=== PATIENT | female | born 1980 | race Two or more races ===

== ENCOUNTER 2018-07-25 15:59 | Emergency (ER) | payer MEDICAID ==
--- NOTE | 2018-07-25 16:20 | ED Physician Chart ---
ED Chief Complaint/HPI - Patient Information Date Seen:: 07/25/18 Time Seen:: 16:14 Chief Complaint:: neck pain History of Present Illness:: THIS IS A 38 YR OLD FEMALE WHO STATES THAT SHE SUSTAINED AN INJURY TO HER NECK TWO DAYS AGO. SHE IS NOW CONCERNED THAT IT IS NOT GETTING BETTER. SHE WONT TELL ME THE SPECIFICS OF HOW SHE GOT HER NECK INJURY. SHE DENIES ALL OTHER INJURIES. Allergies:: Allergies Allergy/AdvReac Type Severity Reaction Status Date / Time No Known Allergies Allergy Verified 07/25/18 16:09 Vitals:: Vital Signs - 8 hr 07/25/18 16:10 Temp 97.9 F HR 90 RR 17 BP 122/88 O2 Sat % 97 Historian:: Patient Review:: Nurse's Note Reviewed, Old Chart Reviewed ED Review of Systems - Review of Systems General/Constitutional: No fever, No chills, No weight loss, No weakness, No diaphoresis, No edema, No loss of appetite Skin: No skin lesions, No rash, No bruising Head: No headache, No light-headedness Eyes: No loss of vision, No pain, No diplopia ENT: No earache, No nasal drainage, No sore throat, No tinnitus Neck: Neck pain, Swelling, No thyromegaly, No stiffness, No mass noted Cardio Vascular: No chest pain, No palpitations, No PND, No orthopnea, No edema Pulmonary: No SOB, No cough, No sputum, No wheezing GI: No nausea, No vomiting, No diarrhea, No pain, No melena, No hematochezia, No constipation, No hematemesis G/U: No dysuria, No frequency, No hematuria Musculoskeletal: No bone or joint pain, No back pain, No muscle pain Endocrine: No polyuria, No polydipsia Psychiatric: No prior psych history, No depression, No anxiety, No suicidal ideation Hematopoietic: No bruising, No lymphadenopathy Allergic/Immuno: No urticaria, No angioedema Neurological: No syncope, No focal symptoms, No weakness, No paresthesia, No headache, No seizure, No dizziness, No confusion, No vertigo ED Past Medical History - Past Medical History Obtainable: Yes Past Medical History: No significant medical hx Family History: None Social History: Smoker, No Alcohol, No Drug Use, Employed Surgical History: None Psychiatricy History: None Medication: Reviewed Family Medical History - Family Member Mother History Unknown: Yes ED Physical Exam - Physical Examination General/Constitutional: Awake, Well-developed, well-nourished, Alert, No distress, GCS 15, Non-toxic appearing, Ambulatory Head: Atraumatic Eyes: Lids, conjuctiva normal, PERRL, EOMI Skin: Nl inspection, No rash, No skin lesions, No ecchymosis, Well hydrated, No lymphadenopathy ENMT: External ears, nose nl, Nasal exam nl, Lips, teeth, gums nl Neck: No JVD, No nuchal rigidity, No bruit, No mass, No stridor Other Neck comments:: THE NECK IS SLIGHTLY SWOLLEN ANTERIORLY WITH TENDERNESS IN THE POSTERIOR NECK AND PAINFUL BUT NORMAL ROM. Respiratory: Nl effort/Exclusion, Clear to Auscultation, No Wheeze/Rhonchi/Rales Cardio Vascular: RRR, No murmur, gallop, rubs, NL S1 S2 GI: No tenderness/rebounding/guarding, No organomegaly, No hernia, Normal BS's, Nondistended, No mass/bruits, No McBurney tenderness : No CVA tenderness Extremities: No tenderness or effusion, Full ROM, normal strength in all extremities, No edema, Normal digits & nails Neuro/Psych: Alert/oriented, DTR's symmetric, Normal sensory exam, Normal motor strength, Judgement/insight normal, Mood normal, Normal gait, No focal deficits Misc: Normal back, No paraspinal tenderness ED Assessment - Assessment General Assessment: NECK TRAUMA ED Septic Shock - . Is Septic Shock (SBP<90, OR Lactate>4 mmol\L) present?: No - <6hrs of presentation: Vital Signs: Vital Signs - 8 hr 07/25/18 16:10 Temp 97.9 F HR 90 RR 17 BP 122/88 O2 Sat % 97 ED Reassessment (Disposition) - Diagnosis Diagnosis:: NECK TRAUMA - Aftercare/Follow up Instructions Notes:: THE PATIENT WAS INTERVIEWED BY THE POLICE AND AFTERWARD SHE ELOPED BEFORE SHE HER CT SCAN OF HER NECK. - Patient Disposition Discharge/Transfer:: [facility]/AWOL
--- NOTE | 2018-07-26 09:40 | Diagnostic Imaging Report ---
CT cervical spine without IV contrast HISTORY: Trauma COMPARISON: None Technique: Axial images were obtained from the skull base to the upper thoracic spine without IV contrast. Multiplanar reconstructions were made. Total DLP: [id number], [id number] FINDINGS: Images of the spine cervical spine obtained without contrast demonstrate no evidence of a fracture or subluxation. The disc spaces are preserved. Minimal degenerative changes of the cervical spine are noted. No prevertebral soft tissue swelling. No focal soft tissue abnormalities. The lung apices are clear. IMPRESSION: No evidence of an acute fracture or subluxation. Minimal degenerate changes.
== END 2018-07-25 18:00 | disposition left against medical advice (07) ==
LOC: ER 15:59
DX: S19.9XXA Unspecified injury of neck, initial encounter (principal); R22.1 Localized swelling, mass and lump, neck; F17.200 Nicotine dependence, unspecified, uncomplicated; W50.0XXA Accidental hit or strike by another person, initial encounter; Y93.89 Activity, other specified; Y92.89 Other specified places as the place of occurrence of the external cause; Y99.8 Other external cause status
CPT/HCPCS: 72125-TC; 81025-TC